=== PATIENT | male | born 1985 | race Two or more races ===

== ENCOUNTER 2018-09-26 00:55 | Inpatient (IN) | payer SELFPAY ==
[~2018-09-26] VITALS: Ht 193 cm; Wt 66.7 kg
[2018-09-26] MEDS ORDERED: ONDANSETRON HCL 4MG/2ML INJ IV STA (01:43)
[2018-09-26] MEDS ORDERED: SODIUM CHLORIDE 0.9% 1,000 ML IV ONE (01:43)
[2018-09-26] MEDS ORDERED: LORAZEPAM 2MG/ML CPJ IV ONE ×2 (02:00→02:45)
[2018-09-26 02:19] LABS: CHLORIDE 90 mEq/L (98-107); HEMOGLOBIN. 14.4 g/dL (14.0-18.0); MEAN CORPUSCULAR HEMOGLOBIN 34.6 pg (28.0-32.0); MEAN CORPUSCULAR VOLUME 98.4 fL (80.0-94.0); MEAN PLATELET VOLUME 8.3 fl (7.4-10.4); PLATELET 167 x1000/uL (130-400); RED BLOOD CELL COUNT 4.17 mill/uL (4.7-6.1); RED CELL DISTRIBUTION WIDTH 12.7 % (11.6-14.6)
[2018-09-26 02:23] LABS: ETHANOL BLOOD < 10 mg/dL
[2018-09-26 02:45] LABS: PLATELET ESTIMATE NORMAL
[2018-09-26] MEDS ORDERED: POTASSIUM CHLORIDE INJ 40 MEQ in DEXT 5% WATER 250 ML IV ONE (02:45)
[2018-09-26] MEDS ORDERED: FOLIC ACID 1 MG, THIAMINE HCL 100 MG, MVI, ADULT NO.1 10 ML in DEXTROSE 5% WATER 1,000 ML IV ONE ×4 (02:45)
[2018-09-26] MEDS ORDERED: ONDANSETRON HCL 4MG/2ML INJ IV ONE (03:30)
[2018-09-26 03:52] LABS: CLARITY URINE CLEAR (CLEAR); COLOR URINE DARK YELLOW (YELLOW); KETONES URINE 1+ (NEGATIVE); LEUKOCYTE ESTERASE URINE TRACE (NEGATIVE); NITRITE URINE NEGATIVE (NEGATIVE); OCCULT BLOOD URINE NEGATIVE (NEGATIVE); PH URINE 6.5 (4.5-8.0); PROTEIN URINE 1+ (NEGATIVE); SPECIFIC GRAVITY URINE 1.027 (1.005-1.030)
[2018-09-26] MEDS ORDERED: [UNRECOGNIZED DRUG - REMARK] IV SCH ×4 (04:00)
[2018-09-26] MEDS: KCL 20MEQ/100ML PREMIX 100 ML IV SCH ×2 (04:40→06:49)
[2018-09-26] MEDS ORDERED: MAGNESIUM/ALUMINUM HYDROXIDE/SIMETHICONE 30ML UDC PO PRN (09:30)
[2018-09-26] MEDS ORDERED: LORAZEPAM 2MG/ML CPJ IV PRN (09:30)
[2018-09-26] MEDS ORDERED: CLONIDINE 0.1MG TABLET PO PRN (09:30)
[2018-09-26] MEDS ORDERED: DIPHENHYDRAMINE 50MG/ML VIAL IV PRN (09:30)
[2018-09-26] MEDS ORDERED: DOCUSATE SODIUM 100MG CAPSULE PO PRN (09:30)
[2018-09-26] MEDS ORDERED: ACETAMINOPHEN 325MG TABLET PO PRN (09:30)
[2018-09-26] MEDS ORDERED: GUAIFENESIN 200MG/10ML SUGAR FREE UDC PO PRN (09:30)
[2018-09-26] MEDS: DEXT 5%/0.45% NACL 1000ML 1,000 ML IV SCH ×2 (11:50→22:59)
[2018-09-26 12:25] LABS: HEPATITIS B SURFACE ANTIGEN NEGATIVE
[2018-09-26 12:36] LABS: BASOPHILS % 0.2 % (0.0-2.0); EOSINOPHILS % 0.4 % (0.0-5.0); HEMATOCRIT. 38.7 % (42.0-52.0); HEMOGLOBIN. 13.7 g/dL (14.0-18.0); LYMPHOCYTES % 24.5 % (20.0-50.0); MEAN PLATELET VOLUME 8.7 fl (7.4-10.4); MONOCYTES % 6.8 % (2.0-8.0); NEUTROPHILS % 68.1 % (40.0-76.0); PLATELET 129 x1000/uL (130-400); RED BLOOD CELL COUNT 3.91 mill/uL (4.7-6.1); RED CELL DISTRIBUTION WIDTH 12.8 % (11.6-14.6)
[2018-09-26 12:52] LABS: HEPATITIS A AB IGM NEGATIVE (NEGATIVE)
[2018-09-26 12:59] LABS: CHLORIDE 96 mEq/L (98-107)
[2018-09-26 13:41] VITALS: BP 132/87
[2018-09-26 14:00] VITALS: BP 125/84
[2018-09-26 15:33] LABS: VITAMIN B12 SERUM 688 pg/mL (211-911)
[2018-09-26 16:00] VITALS: BP 127/88
[2018-09-26 17:00] VITALS: BP 127/72
[2018-09-26] MEDS: ONDANSETRON HCL 4MG/2ML INJ IV PRN ×2 (17:05→21:01)
[2018-09-26 20:00] VITALS: BP 143/83
[2018-09-26] MEDS ORDERED: FAMOTIDINE 20MG/2ML VIAL IV SCH (21:00)
[2018-09-26] MEDS: PANTOPRAZOLE SODIUM 40 MG/VIAL IV SCH (21:09)
[2018-09-26 22:00] VITALS: BP 138/82
[2018-09-27] VITALS: BP 130/85
[2018-09-27 02:00] VITALS: BP 132/87
[2018-09-27 04:00] VITALS: BP 133/78
[2018-09-27 05:51] VITALS: BP 129/85
[2018-09-27 05:57] LABS: BASOPHILS % 0.4 % (0.0-2.0); EOSINOPHILS % 1.2 % (0.0-5.0); HEMATOCRIT. 36.8 % (42.0-52.0); HEMOGLOBIN. 12.8 g/dL (14.0-18.0); LYMPHOCYTES % 37.7 % (20.0-50.0); MEAN CORPUSCULAR HEMOGLOBIN 34.7 pg (28.0-32.0); MEAN CORPUSCULAR VOLUME 99.7 fL (80.0-94.0); MONOCYTES % 5.4 % (2.0-8.0); NEUTROPHILS % 55.3 % (40.0-76.0); PLATELET 126 x1000/uL (130-400); RED CELL DISTRIBUTION WIDTH 12.7 % (11.6-14.6)
[2018-09-27 06:07] LABS: CHLORIDE 100 mEq/L (98-107)
[2018-09-27 08:00] VITALS: BP 137/95
[2018-09-27] MEDS ORDERED: FOLIC ACID 1 MG, THIAMINE HCL 100 MG, MVI, ADULT NO.1 10 ML in DEXTROSE 5% WATER 1,000 ML IV SCH ×4 (09:00)
[2018-09-27] MEDS: PANTOPRAZOLE SODIUM 40 MG/VIAL IV SCH (09:53)
[2018-09-27 10:00] VITALS: BP 138/99
[2018-09-27] MEDS ORDERED: PROPRANOLOL HCL 20MG TABLET PO NR (10:15)
[2018-09-27] MEDS ORDERED: PROPRANOLOL HCL 20MG TABLET PO ONE (10:15)
[2018-09-27 21:39] LABS: *AMPHETAMINES SCREEN URINE NEGATIVE (NEGATIVE); *BARBITURATES SCREEN URINE NEGATIVE (NEGATIVE); *BENZODIAZEPINES SCREEN URINE NEGATIVE (NEGATIVE); *COCAINE SCREEN URINE NEGATIVE (NEGATIVE)
[2018-09-27 21:40] LABS: CANNABINOID URINE SCREEN PRESUMTIVE POSITIVE (NEGATIVE); METHADONE URINE SCREEN NEGATIVE (NEGATIVE); OPIATES URINE SCREEN NEGATIVE (NEGATIVE); PHENCYCLIDINE URINE SCREEN NEGATIVE (NEGATIVE)
== END 2018-09-27 13:50 | disposition home or self-care (01) | DRG 422 ==
LOC: ER 00:55 → 5EST 02:45 → ENRESERV 07:41 → CANRESERV 07:41 → ENRESERV 08:05 → 5EST 12:47
PROVIDERS: ADMIT Internal Medicine Geriatric Medicine; ATTEND Internal Medicine Geriatric Medicine
DX: E87.6 Hypokalemia (principal); E86.0 Dehydration; K70.9 Alcoholic liver disease, unspecified; E87.1 Hypo-osmolality and hyponatremia; F10.239 Alcohol dependence with withdrawal, unspecified; F41.9 Anxiety disorder, unspecified; D75.89 Other specified diseases of blood and blood-forming organs; F17.210 Nicotine dependence, cigarettes, uncomplicated; F41.1 Generalized anxiety disorder; K21.9 Gastro-esophageal reflux disease without esophagitis; K52.9 Noninfective gastroenteritis and colitis, unspecified
CPT/HCPCS: 36415; 71045; 74018; 76700; 80048; 80305; 80320; 82607; 82962; 83036; 83605; 83735; 86705; 86709; 86803; 87340; 93970; 96365; 96375; 97162; 99285; C9113; J1200; J2060; J2405; J3411; J3480; J3490; J7030; J7060; J7070; G0480

== ENCOUNTER 2019-01-10 08:55 | Emergency (ER) | payer MEDICAID ==
[~2019-01-10] VITALS: Ht 193 cm; Wt 80.0 kg
[2019-01-10] MEDS ORDERED: FOLIC ACID 1 MG, THIAMINE HCL 100 MG, MVI, ADULT NO.1 10 ML in DEXTROSE 5% WATER 1,000 ML IV ONE ×4 (09:15)
[2019-01-10] MEDS ORDERED: LORAZEPAM 2MG/ML CPJ IV STA (09:15)
[2019-01-10 09:31] LABS: EOSINOPHILS % 0.3 % (0.0-5.0); HEMATOCRIT. 43.4 % (42.0-52.0); HEMOGLOBIN. 14.9 g/dL (14.0-18.0); LYMPHOCYTES % 54.3 % (20.0-50.0); MEAN CORPUSCULAR HEMOGLOBIN 33.3 pg (28.0-32.0); MEAN CORPUSCULAR VOLUME 96.5 fL (80.0-94.0); MONOCYTES % 7.1 % (2.0-8.0); NEUTROPHILS % 37.3 % (40.0-76.0); PLATELET 165 x1000/uL (130-400); RED BLOOD CELL COUNT 4.49 mill/uL (4.7-6.1); RED CELL DISTRIBUTION WIDTH 14.7 % (11.6-14.6)
[2019-01-10 09:37] LABS: CHLORIDE 102 mEq/L (98-107)
[2019-01-10 09:49] LABS: ETHANOL BLOOD 388 mg/dL
[2019-01-10] MEDS ORDERED: SODIUM CHLORIDE 0.9% 1,000 ML IV ONE (10:15)
[2019-01-10 10:16] LABS: CLARITY URINE CLEAR (CLEAR); COLOR URINE YELLOW (YELLOW); KETONES URINE NEGATIVE (NEGATIVE); LEUKOCYTE ESTERASE URINE NEGATIVE (NEGATIVE); NITRITE URINE NEGATIVE (NEGATIVE); OCCULT BLOOD URINE NEGATIVE (NEGATIVE); PROTEIN URINE NEGATIVE (NEGATIVE); SPECIFIC GRAVITY URINE 1.004 (1.005-1.030); UROBILINOGEN URINE 0.2 E.U./dL (0.2-1.0)
[2019-01-10 10:31] LABS: *BARBITURATES SCREEN URINE NEGATIVE (NEGATIVE); *BENZODIAZEPINES SCREEN URINE NEGATIVE (NEGATIVE); *COCAINE SCREEN URINE NEGATIVE (NEGATIVE); METHADONE URINE SCREEN NEGATIVE (NEGATIVE)
[2019-01-10 10:33] LABS: CANNABINOID URINE SCREEN PRESUMTIVE POSITIVE (NEGATIVE); OPIATES URINE SCREEN NEGATIVE (NEGATIVE); PHENCYCLIDINE URINE SCREEN NEGATIVE (NEGATIVE)
[2019-01-10 10:35] LABS: *AMPHETAMINES SCREEN URINE NEGATIVE (NEGATIVE)
[2019-01-10] MEDS ORDERED: FAMOTIDINE 20MG/2ML VIAL IV SCH (13:00)
[2019-01-10] MEDS ORDERED: VISCOUS LIDOCAINE 2% 15 ML UDC MM PRN (13:00)
[2019-01-10] MEDS ORDERED: HYDROCODONE/ACETAMINOPHEN 5/325MG TABLET PO ONE (13:00)
[2019-01-10] MEDS ORDERED: CHLORDIAZEPOXIDE 25MG CAPSULE PO ONE (13:30)
[2019-01-10 13:35] VITALS: BP 119/87
== END 2019-01-10 17:29 | disposition home or self-care (01) ==
LOC: ER 09:01
DX: F10.10 Alcohol abuse, uncomplicated (principal); K76.0 Fatty (change of) liver, not elsewhere classified; R79.89 Other specified abnormal findings of blood chemistry; F12.10 Cannabis abuse, uncomplicated; I51.9 Heart disease, unspecified; Y90.9 Presence of alcohol in blood, level not specified
CPT/HCPCS: 36415; 76705; 80053; 80305; 80320; 81003; 83690; 85025; 93005; 96361; 96365; 96366; 96375; 99284; J2060; J3411; J3490; J7030; J7070; Z7610; G0480